=== PATIENT | male | born 1935 | race Caucasian/White ===

== ENCOUNTER → 2016-06-13 | Outpatient (CLI) | payer OTHER ==
--- NOTE | ~2016-06-13 | 2DMMODE ---
[facility] [employer] [place] [address] 2 D/M-MODE ECHOCARDIOGRAM Name: CRISTIANA GATES Room #: [facility]#: [id number] Admission: 06/13/16 Attend Phys: Ced Matta MD Discharge: Date of : 35 Date of Service: 06/13/16 1040 Report #: [id number] THIS REPORT FOR: //name// APPROVED REPORT EXAM: Comprehensive 2D, Doppler, and color-flow Echocardiogram Patient Location: Out-Patient Blood Pressure: 107/69 mmHg HR: 48 bpm Rhythm: Bradycardia Other Information Study Quality: Adequate. Low parasternal window. Indications CAD Hx: HTN, HLP 2D Dimensions RVDd: 36.11 mm LVEF(%): 68.71 (>50%) IVSd: 9.68 (7-11mm) LVOT Diam: 18.84 (18-24mm) LVDd: 44.80 mm PWd: 10.41 (7-11mm) Ascending Aorta: 30.50 mm LVDs: 27.64 (25-40mm) Aortic Root: 30.00 mm Parry's LVEF: 68.71 % Volumes Left Atrial Volume (Systole) Single Plane 4CH: 60.42 mL Single Plane 2CH: 61.60 mL LA ESV Index: 35.00 mL/m2 Aortic Valve AoV Peak Jose.: 2.50 m/s AO Peak Gr.: 25.04 mmHg AO V2 VTI: 603.78 mm Mitral Valve MV PHT: 78.54 ms MV E Max Jose.: 0.85 m/s E/A Ratio: 0.8 MV A Jose.: 1.05 m/s MV Decel. Time: 270.81 ms TDI [facility] [address] [place] [place] [address] 2 D/M-MODE ECHOCARDIOGRAM Name: CRISTIANA GATES Rosie Room #: [facility]#: [id number] Admission: 06/13/16 Attend Phys: Ced Matta MD Discharge: Date of : 35 Date of Service: 06/13/16 1040 Report #: [id number] E/Lateral E': 11.00 E/Medial E': 15.00 Pulmonary Valve PV Peak Jose.: 1.32 m/s PV Peak Gr.: 6.93 mmHg Tricuspid Valve TR Peak Jose.: 2.18 m/s RAP Estimate: 5.00 mmHg TR Peak Gr.: 18.93 mmHg RVSP: 24.00 mmHg Left Ventricle The left ventricle is normal size. There is normal LV segmental wall motion. There is normal left ventricular wall thickness. Left ventricular systolic function is normal. LVEF is 60%. Grade I - abnormal relaxation pattern. Right Ventricle The right ventricle is normal size. The right ventricular systolic function is normal. Atria Left atrium is mildly dilated. The right atrium size is normal. Aortic Valve Aortic valve is calcified. Trace aortic regurgitation. Mild aortic stenosis. Mitral Valve Mitral valve leaflets are mildly thickened. Mild mitral regurgitation. Tricuspid Valve The tricuspid valve is normal in structure. There is mild tricuspid regurgitation. The right atrial pressure is estimated at 5 mmHg. Right ventricular systolic pressure is estimated at 24 mmHg. Pulmonic Valve The pulmonary valve is normal in structure. There is no pulmonic valvular regurgitation. Great Vessels The aortic root is normal in size. The ascending aorta is normal in size. IVC is normal in size and collapses >50% with inspiration. [facility] [address] [place] [place] [address] 2 D/M-MODE ECHOCARDIOGRAM Name: CRISTIANA GATES Room #: [facility]#: [id number] Admission: 06/13/16 Attend Phys: Ced Matta MD Discharge: Date of : 35 Date of Service: 06/13/16 1040 Report #: [id number] Pericardium There is no pericardial effusion. <Conclusion> The left ventricle is normal size. Left ventricular systolic function is normal. The right ventricle is normal size. Left atrium is mildly dilated. Mild aortic stenosis. Mild mitral regurgitation. There is mild tricuspid regurgitation. The right atrial pressure is estimated at 5 mmHg. Right ventricular systolic pressure is estimated at 24 mmHg. <ELECTRONICALLY SIGNED> By: Ced Matta MD 06/13/161039 1040 Ced Matta MD /INF
== END ==
LOC: CV 09:32
DX: I25.10 Atherosclerotic heart disease of native coronary artery without angina pectoris (principal); I10 Essential (primary) hypertension; E78.5 Hyperlipidemia, unspecified

== ENCOUNTER → 2017-05-08 | Outpatient (CLI) | payer OTHER ==
--- NOTE | ~2017-05-08 | 2DMMODE ---
[facility] [place] [address] 2 D/M-MODE ECHOCARDIOGRAM Name: CRISTIANA GATES Room #: [facility]#: [id number] Admission: 05/08/17 Attend Phys: Ced Matta MD Discharge: Date of : 35 Date of Service: 05/08/17 1450 Report #: [id number] THIS REPORT FOR: //name// APPROVED REPORT Study performed: 05/08/2017 13:50:44 EXAM: Comprehensive 2D, Doppler, and color-flow Echocardiogram Patient Location: Echo lab Status: routine BSA: 1.94 HR: 63 bpm BP: 140/80 mmHg Other Information Study Quality: Adequate Indications CAD 2D Dimensions RVDd: 33.11 mm LVEF(%): 84.81 (>50%) IVSd: 11.66 (7-11mm) LVOT Diam: 19.23 (18-24mm) LVDd: 37.69 mm PWd: 13.95 (7-11mm) Ascending Ao: 31.39 (22-36mm) LVDs: 17.64 (25-40mm) Aortic Root: 29.00 mm IVC: 17.00 mm Parry's LVEF: 84.81 % Volumes Left Atrial Volume (Systole) Single Plane 4CH: 55.47 mL Single Plane 2CH: 42.04 mL LA ESV Index: 30.00 mL/m2 Aortic Valve AoV Peak Jose.: 2.67 m/s AO Peak Gr.: 28.48 mmHg LVOT Max P.94 mmHg AO Mean Gr.: 13.24 mmHg LVOT Mean P.03 mmHg AO V2 Mean: 1.67 m/s LVOT Max V: 1.87 m/s AO V2 VTI: 53.61 cm LVOT Mean V: 1.09 m/s ALTAGRACIA (VTI): 2.20 cm2 LVOT V1 VTI: 40.57 cm ALTAGRACIA Vmax: 2.03 cm2 SV (LVOT): 117.77 mL [facility] [place] [place] [address] 2 D/M-MODE ECHOCARDIOGRAM Name: CRISTIANA GATES Rosie Room #: [facility]#: [id number] Admission: 05/08/17 Attend Phys: Ced Matta MD Discharge: Date of : 35 Date of Service: 05/08/17 1450 Report #: [id number] Mitral Valve E/A Ratio: 0.6 MV Decel. Time: 288.08 ms MV E Max Jose.: 0.70 m/s MV A Jose.: 1.12 m/s MV PHT: 83.54 ms IVRT: 93.43 ms Pulmonary Valve PV Peak Jose.: 1.15 m/s PV Peak Gr.: 5.36 mmHg Pulmonary Vein P Vein S: 0.43 m/s P Vein A: 0.35 m/s P Vein D: 0.23 m/s P Vein A Dur.: 145.3 msec P Vein S/D Ratio: 1.87 Tricuspid Valve TR Peak Jose.: 2.62 m/s RAP Estimate: 5.00 mmHg TR Peak Gr.: 27.43 mmHg PA Pressure: 32.00 mmHg Left Ventricle The left ventricle is normal size. Mild concentric left ventricular hypertrophy. The left ventricular systolic function is normal. The left ventricular ejection fraction is within the normal range. LVEF is 60%. Mild diastolic dysfunction is present (impaired relaxation pattern). Right Ventricle The right ventricle is normal size. The right ventricular systolic function is normal. Atria Left atrium is at the upper limits of normal. The right atrium size is normal. Aortic Valve The Aortic valve is sclerotic. Trace aortic regurgitation. There is trace to mild valvular aortic stenosis. Calculated aortic valve area is 2.0 cm2 with maximum pressure gradient of 28 mmHg and mean pressure gradient of 13 mmHg. Mitral Valve Mitral valve leaflets are mildly thickened. Mild mitral regurgitation. No evidence of mitral valve stenosis. [address] [address] 2 D/M-MODE ECHOCARDIOGRAM Name: CRISTIANA GATES Room #: [facility]#: [id number] Admission: 05/08/17 Attend Phys: Ced Matta MD Discharge: Date of : 35 Date of Service: 05/08/17 1450 Report #: [id number] Tricuspid Valve The tricuspid valve is normal in structure. Trace tricuspid regurgitation. PAP is estimated at 32 mmHg. Pulmonic Valve Pulmonic valve is not well visualized. Great Vessels The aortic root is normal in size. IVC is normal in size and collapses >50% with inspiration. Pericardium There is no pericardial effusion. <Conclusion> The left ventricle is normal size. Mild concentric left ventricular hypertrophy. The left ventricular systolic function is normal. Mild diastolic dysfunction is present (impaired relaxation pattern). The right ventricle is normal size. Aortic valve is mildly calcified. There is trace to mild valvular aortic stenosis. Mild mitral regurgitation. <ELECTRONICALLY SIGNED> By: Ced Matta MD 05/08/171449 49 49 Ced Matta MD /INF
== END ==
LOC: CV 11:44
DX: I25.10 Atherosclerotic heart disease of native coronary artery without angina pectoris (principal); I51.7 Cardiomegaly; I70.0 Atherosclerosis of aorta; I34.0 Nonrheumatic mitral (valve) insufficiency; I35.0 Nonrheumatic aortic (valve) stenosis

== ENCOUNTER → 2018-06-14 | Outpatient (CLI) | payer OTHER ==
--- NOTE | 2018-06-14 10:23 | 2DMMODE ---
[facility] [place] [employer] [place] [address] 2 D/M-MODE ECHOCARDIOGRAM Name: CRISTIANA GATES Room #: REG [facility]#: [id number] ������������� Admission: 06/14/18 ������������� Attend Phys: Ced Matta MD Discharge: ��� ������������� ��� Date of : 35 Date of Service: 06/14/18 1022 �� Report #: [id number] �������� ��������������������������������������������[id number] THIS REPORT FOR: //name// APPROVED REPORT Study performed: 06/14/2018 09:18:32 EXAM: Comprehensive 2D, Doppler, and color-flow Echocardiogram Patient Location: Out-Patient Status: routine BSA: 1.92 HR: 82 bpm BP: 100/68 mmHg Rhythm: NSR Other Information Study Quality: Adequate Indications CAD 2D Dimensions RVDd: 30.39 mm IVSd: 11.23 (7-11mm) LVOT Diam: 19.62 (18-24mm) LVDd: 41.14 mm PWd: 11.04 (7-11mm) LVDs: 25.13 (25-40mm) Aortic Root: 33.31 mm Volumes Left Atrial Volume (Systole) Single Plane 4CH: 34.93 mL Single Plane 2CH: 28.54 mL LA ESV Index: 16.00 mL/m2 Aortic Valve AoV Peak Jose.: 2.53 m/s AO Peak Gr.: 25.53 mmHg LVOT Max P.76 mmHg AO Mean Gr.: 16.92 mmHg AO V2 Mean: 1.97 m/s LVOT Max V: 1.64 m/s AO V2 VTI: 49.82 cm ALTAGRACIA Vmax: 1.96 cm2 Mitral Valve E/A Ratio: 0.6 [facility] [address] [place] [address] 2 D/M-MODE ECHOCARDIOGRAM Name: CRISTIANA GATES Room #: REG [facility]#: [id number] ������������� Admission: 06/14/18 ������������� Attend Phys: Ced Matta MD Discharge: ��� ������������� ��� Date of : 35 Date of Service: 06/14/18 1022 �� Report #: [id number] �������� ��������������������������������������������[id number] MV Decel. Time: 263.68 ms MV E Max Jose.: 0.60 m/s MV A Jose.: 1.03 m/s MV PHT: 76.47 ms IVRT: 76.12 ms Pulmonary Valve PV Peak Jose.: 1.05 m/s PV Peak Gr.: 4.42 mmHg Pulmonary Vein P Vein S: 0.58 m/s P Vein A: 0.31 m/s P Vein D: 0.26 m/s P Vein A Dur.: 110.7 msec P Vein S/D Ratio: 2.23 Tricuspid Valve TR Peak Jose.: 2.15 m/s RAP Estimate: 5.00 mmHg TR Peak Gr.: 18.43 mmHg PA Pressure: 23.00 mmHg Left Ventricle The left ventricle is normal size. There is normal LV segmental wall motion. Borderline concentric left ventricular hypertrophy. Left ventricular systolic function is normal. LVEF is 60-65%. Mild diastolic dysfunction is present (impaired relaxation pattern). Right Ventricle The right ventricle is normal size. The right ventricular systolic function is normal. Atria The left atrium size is normal. The right atrium size is normal. Aortic Valve Aortic valve is calcified. Trace aortic regurgitation. There is mild valvular aortic stenosis. Peak pressure gradient is 26mmHg and mean is 16mmHg. Mitral Valve The mitral valve is normal in structure. Trace mitral regurgitation. Tricuspid Valve The tricuspid valve is normal in structure. Trace tricuspid regurgitation. Estimated PAP is 20-25mmHg. [facility] [address] [place] [address] 2 D/M-MODE ECHOCARDIOGRAM Name: CRISTIANA GATES Rosie Room #: REG [facility]#: [id number] ������������� Admission: 06/14/18 ������������� Attend Phys: Ced Matta MD Discharge: ��� ������������� ��� Date of : 35 Date of Service: 06/14/18 1022 �� Report #: [id number] �������� ��������������������������������������������[id number] Pulmonic Valve Pulmonic valve is not well visualized. Great Vessels The aortic root is normal in size. Ascending aorta is not well visualized. IVC is normal in size and collapses >50% with inspiration. Pericardium There is no pericardial effusion. <Conclusion> The left ventricle is normal size. Borderline concentric left ventricular hypertrophy. Left ventricular systolic function is normal. Mild diastolic dysfunction is present (impaired relaxation pattern). The right ventricle is normal size. The left atrium size is normal. The right atrium size is normal. There is mild valvular aortic stenosis. Peak pressure gradient is 26mmHg and mean is 16mmHg. Trace mitral regurgitation. Trace tricuspid regurgitation. Estimated PAP is 20-25mmHg. ��������������������������������������������� <ELECTRONICALLY SIGNED> ���������������������������������������� By: Ced Matta MD ��������������������������������������������� 06/14/18 1022 1022 1022 Ced Matta MD /INF
== END ==
LOC: CV 05-17 12:28
DX: I35.0 Nonrheumatic aortic (valve) stenosis (principal); I35.8 Other nonrheumatic aortic valve disorders; I25.10 Atherosclerotic heart disease of native coronary artery without angina pectoris

== ENCOUNTER → 2019-11-21 | Outpatient (CLI) | payer OTHER | LOC: SJCVCIMAG 09:15 | PROVIDERS: ATTEND Internal Medicine Cardiovascular Disease | DX: I49.3 Ventricular premature depolarization (principal); I25.10 Atherosclerotic heart disease of native coronary artery without angina pectoris; R53.83 Other fatigue; I10 Essential (primary) hypertension; R60.9 Edema, unspecified; E78.00 Pure hypercholesterolemia, unspecified; K21.9 Gastro-esophageal reflux disease without esophagitis; E78.5 Hyperlipidemia, unspecified; Z86.73 Personal history of transient ischemic attack (TIA), and cerebral infarction without residual deficits; Z79.82 Long term (current) use of aspirin; Z79.899 Other long term (current) drug therapy ==

== ENCOUNTER → 2020-05-21 | Outpatient (CLI) | payer OTHER | LOC: SJCVC 09:38 | PROVIDERS: ATTEND Internal Medicine Cardiovascular Disease | DX: R94.31 Abnormal electrocardiogram [ECG] [EKG] (principal); G45.9 Transient cerebral ischemic attack, unspecified; I25.10 Atherosclerotic heart disease of native coronary artery without angina pectoris; I10 Essential (primary) hypertension; R60.9 Edema, unspecified; E78.00 Pure hypercholesterolemia, unspecified; N40.0 Benign prostatic hyperplasia without lower urinary tract symptoms; E78.5 Hyperlipidemia, unspecified; K21.9 Gastro-esophageal reflux disease without esophagitis; Z98.890 Other specified postprocedural states; Z79.899 Other long term (current) drug therapy ==

== ENCOUNTER → 2021-01-27 | Outpatient (CLI) | payer OTHER | LOC: SJCVC 10:52 | PROVIDERS: ATTEND Internal Medicine Cardiovascular Disease | DX: R94.31 Abnormal electrocardiogram [ECG] [EKG] (principal); G45.9 Transient cerebral ischemic attack, unspecified; I25.10 Atherosclerotic heart disease of native coronary artery without angina pectoris; I10 Essential (primary) hypertension; R60.9 Edema, unspecified; E78.00 Pure hypercholesterolemia, unspecified; K21.9 Gastro-esophageal reflux disease without esophagitis; E78.5 Hyperlipidemia, unspecified; Z79.899 Other long term (current) drug therapy ==